=== PATIENT | female | born 1990 | race Caucasian/White ===

== ENCOUNTER 2022-01-30 14:47 | Emergency (ER) | payer MEDICAID, SELFPAY ==
[2022-01-30 14:48] VITALS: BP 163/99; PULSE 91; RESP 15; TEMP 36.8; O2SAT 96; BMI 32.9
--- NOTE | 2022-01-30 15:57 | EDS_ITS ---
HPI <BRANDO Rabago - Last Filed: 01/30/22 16:06> History of Present Illness Chief Complaint: Laceration Narrative Narrative: 31-year-old female with no significant ankle history presents in the emergency department after getting bit by a cat to her left fifth digit. Patient states that the cat was giving , she grabbed it and it bit her to the left pinky. Patient states she had trouble stopping it from bleeding, is concerned for infection is here for evaluation. Patient states vaccination is up-to-date, patient has no tendon injury. Patient was able to move the pinky without any difficulty. Patient states that it is throbbing and burning. PFSH <BRANDO Rabago - Last Filed: 01/30/22 16:06> [facility] Medical History no medical history Home Medications amoxicillin-pot clavulanate 1 tab PO BID 10 Days #20 tab 01/30/22 [Rx Last Taken Unknown] naproxen 500 mg PO BID #20 tab 01/30/22 [Rx Last Taken Unknown] Allergy/AdvReac Type Severity Reaction Status Date / Time No Known Allergies Allergy Verified 09/13/15 15:45 Family History no significant family his Surgical History no surgical history Social History Smoking Status: Current every day smoker tobacco type: cigarettes ROS <BRANDO Rabago - Last Filed: 01/30/22 16:06> ROS ED ROS Narrative Constitutional: Negative for fever, chills, weight loss or gain, weakness Eyes: Negative for vision loss, vision change, double vision ENT: Negative for any hearing changes, ringing in the ears, dizziness, discharge, pain Nose: Negative for any congestion, runny nose, sinus pain, allergies Throat: Negative for any sore throat hoarseness, voice changes, Cardiovascular: Negative for any chest pain, tightness, palpitations, racing heartbeat Respiratory: Negative for any coughs, sputum production, coughing, hemoptysis, shortness of breath, shortness of breath on exertion, Gastrointestinal: Negative for any abdominal pain, nausea, vomiting, diarrhea, constipation, blood in stool, blood in vomit : Negative for any urinary frequency, incontinence, dysuria, retention, blood in urine Muscle skeletal: Negative for any muscle joint pain, stiffness, myalgias, arthralgias, neck pain, back pain. Positive for left fifth digit pain Neurological: Negative for any headache, head injury, dizziness, syncope, numbness or tingling Skin: Negative for any rashes, lumps, itching, abrasions. Positive for laceration, abrasion to the left pinky Psychiatric: Negative for any depression, anxiety, stress, suicidal ideation, homicidal ideation Hematologic: Negative for any easy bruising, excessive bruising, easy bleeding Allergies: Negative for any eczema, hives, rash EXAM <BRANDO Rabago - Last Filed: 01/30/22 16:06> Physical Exam Const Vital Signs: 01/30/22 14:48 01/30/22 16:24 Temperature 98.2 F 98.2 F Temperature Source Temporal Temporal Pulse Rate 91 74 Respiratory Rate 15 16 Blood Pressure 163/99 H Blood Pressure Mean 120 Pulse Ox 96 98 Oxygen Delivery Method Room Air Room Air Positive well nourished and well developed General Appearance ED: well developed HEENT atraumatic Eyes PERRL and EOMs intact bilaterally Neck full ROM Chest Wall inspection of chest normal Resp normal respiratory effort and clear to auscultation bilaterally Extremity Extremity Narrative: Patient does have a 1 cm half pina laceration to the palmar aspect of the left fifth digit above the DIP joint. There appears to be no tendon involvement. Patient has full range of motion of her fifth digit. There appears to be no drainage, foreign body noted. General Extremety ED: Yes tenderness Skin Skin Narrative: Patient has a 1 cm vertical laceration to the palmar aspect of the left fifth digit Wounds: wounds noted <Dr. Carlos Chapin MD - Last Filed: 01/30/22 23:37> Physical Exam Const Vital Signs: 01/30/22 14:48 01/30/22 16:24 Temperature 98.2 F 98.2 F Temperature Source Temporal Temporal Pulse Rate 91 74 Respiratory Rate 15 16 Blood Pressure 163/99 H Blood Pressure Mean 120 Pulse Ox 96 98 Oxygen Delivery Method Room Air Room Air MDM <BRANDO Rabago - Last Filed: 01/30/22 16:06> [facility] Narrative Medical decision making narrative: Patient appears well, patient appears nontoxic, vital signs are stable. Patient presents to the emergency department with complaints of a bug bite to the left pinky from a cat. Patient wound is vertical, 1 cm, no tendon involvement. This was soaked in warm water and Shur- Clens, will be dressed. This wound will not be closed secondary to risk of infection. Patient be started on Augmentin, naproxen. Patient structured to ice, elevate the area. Patient instructed to return for any sort of redness, drainage from the area, fever chills nausea vomiting. Patient stable for discharge Lab Data Attestation: I reviewed the patient's lab results. Discharge Plan Triage Chief Complaint: Laceration ED Provider: Carlos Watson Dx/Rx/DC Orders Clinical Impression: Cat bite, Laceration Instructions: Animal Bites and Scratches Prescriptions: New amoxicillin-pot clavulanate 875-125 mg tablet 1 tab PO BID 10 Days Qty: 20 RF: 0 naproxen 500 mg tablet 500 mg PO BID Qty: 20 RF: 0 Primary Care Provider: Care Physician,No Primary Referrals: Care Physician,No Primary [Primary Care Provider] - Activity Restrictions/Additional Instructions: Please keep this clean, dry. Please return for any signs or symptoms of infection. Please take full dose of antibiotics. Disposition Disposition: Home, Self Care Discharge Date/Time: 01/30/22 16:28
--- NOTE | 2022-01-30 16:13 | CM.ED ---
Social Work Consult: No Primary Care Physician (PCP). Referral source: Self referral. Met with patient in room. Introduced self and social staff worker role. Patient agreeable to speak with this social staff worker. Patient confirms to not have a PCP. Patient agreeable to receiving list of PCP's that are in-network with patient insurance and local to patient geographical region, list provided. Patient denies any concerns on returning to the community or community needs. no further services indicated. Fabian WAHL, AMEYA-S
[2022-01-30] MEDS: Amox/Clavulanate 875 MG Tablet PO (16:21)
[2022-01-30] MEDS: Naproxen 500 MG Tablet PO (16:21)
[2022-01-30 16:24] VITALS: PULSE 74; RESP 16; TEMP 36.8; O2SAT 98
== END 2022-01-30 16:28 | disposition home or self-care (01) ==
PROVIDERS: Emergency Provider Nurse Practitioner; Visit Provider Nurse Practitioner
DX: S61.217A Laceration without foreign body of left little finger without damage to nail, initial encounter (principal); W55.01XA Bitten by cat, initial encounter; Y93.89 Activity, other specified; Y99.8 Other external cause status; F17.210 Nicotine dependence, cigarettes, uncomplicated
CPT/HCPCS: 99281; 99283

== ENCOUNTER 2022-11-23 19:54 | Emergency (ER) | payer MEDICAID, SELFPAY ==
[2022-11-23 19:55] VITALS: BP 135/90; PULSE 121; RESP 15; TEMP 36.6; O2SAT 98; BMI 29.2
== END 2022-11-23 20:16 | disposition left against medical advice (07) ==
LOC: ED 21:41
DX: Z53.21 Procedure and treatment not carried out due to patient leaving prior to being seen by health care provider (principal)